=== PATIENT | female | born 1995 | race Caucasian/White ===

== ENCOUNTER → 2021-07-22 | Outpatient (CLI) | payer BC ==
--- NOTE | 2021-07-22 08:39 | REP ---
INDICATION: PREG, DATING/VIABILITY. COMPARISON: None. TECHNIQUE: Transabdominal scanning FINDINGS: Within the uterus there is an anechoic structure with increased echoes surrounding it consistent with a decidual reaction. Within the gestational sac there is echogenic material consistent with a pole the mean crown-rump length measurement of which is consistent with a 13 week 4 day gestational age. Based on that, the estimated date of delivery is 01/23/2022. Doppler interrogation of the pole shows a heart rate of 157 beats per minute. The developing placenta is anterior and not low-lying. The subjective amniotic fluid volume at this early stage of appears normal. The maternal adnexal spaces were unremarkable. IMPRESSION: Early OB ultrasound as described above. <Electronically signed by Adryan Chaparro > 07/22/21 [id number]
== END ==
LOC: M RAD 06:40
PROVIDERS: ATTEND Advanced Practice Midwife
DX: O36.80X0 Pregnancy with inconclusive fetal viability, not applicable or unspecified (principal); Z32.01 Encounter for pregnancy test, result positive; Z3A.13 13 weeks gestation of pregnancy

== ENCOUNTER → 2021-08-24 | Outpatient (CLI) | payer BC ==
--- NOTE | 2021-08-24 11:57 | REP ---
INDICATION: ANATOMY COMPARISON: 07/22/2021 TECHNIQUE: Transabdominal obstetrical ultrasound with color Doppler evaluation. FINDINGS: Examination demonstrates a single live intrauterine in breech presentation. motion is identified by technologist. Placenta is noted anterior and grade 0 without evidence for placenta previa or abruption. Amniotic fluid volume is normal. Cervix measures 5.0 cm in length and appears closed.. Selected gestational age: 17 weeks 6 days with GEORGINA 01/26/2022. Gestational age by current measurements 18 weeks 4 days with GEORGINA 01/21/2022. FHR equals 147 beats per minute. BPD: 4.3 cm; 19 weeks 0 days; 81% HC: 15.1 cm; 18 weeks 1 day; 57% AC: 12.8 cm; 18 weeks 3 days; 60% FL: 2.7 cm; 18 weeks 2 days; 58% HL: 2.8 cm; 18 weeks 6 days; 66% HC/AC: 1.18 Estimated weight 234 grams (77thpercentile). Anatomical assessment demonstrates normal structures including cranium, choroid plexus, cavum, cerebellum/posterior fossa, facial profile, lungs, diaphragm, stomach, cord insertion/three-vessel cord, kidneys/bladder, spine, and extremities. Limited evaluation of the left lower extremity, nose/lips and orbits as well as heart and cardiac ventricular outflow tracts. IMPRESSION: Single live intrauterine in breech presentation demonstrating appropriate estimated weight. Anatomical limitations as noted above may warrant follow-up. <Electronically signed by Gurpreet Mayo > 08/24/21 [id number]
== END ==
LOC: M RAD 10:08
PROVIDERS: ATTEND Obstetrics & Gynecology Obstetrics
DX: Z34.82 Encounter for supervision of other normal pregnancy, second trimester (principal); Z3A.18 18 weeks gestation of pregnancy

== ENCOUNTER → 2021-10-01 | Outpatient (CLI) | payer BC | LOC: M RAD 10:47 | PROVIDERS: ATTEND Obstetrics & Gynecology Obstetrics | DX: Z34.02 Encounter for supervision of normal first pregnancy, second trimester (principal); Z3A.23 23 weeks gestation of pregnancy ==